=== PATIENT | male | born 1945 | race Caucasian/White ===

== ENCOUNTER → 2018-08-05 | Outpatient (CLI) | payer MEDICARE ==
[~2018-08-05] VITALS: Ht 167.6 cm; Wt 81.6 kg
[~2018-08-05] MED LIST: ADULT LOW DOSE81 MG PO; AMBIEN; AMBIEN 10 MG TA10 MG PO; ASPIRIN EC81 M1 PO; BENTYL 20 MG TA20 M1 PO; CARAFATE 11 GM/10 M1 PO; LANTUS SC; LANTUS SUBQ; MOBIC7.5 MG; NORCO 10-325 T1 EACH PO; NOVOLOG100 UNIT/1 SQ; NOVOLOG100 UNIT/1 SUBQ; PROTONIX40 MG PO; SIMVASTATIN20 MG PO; TIMOPTIC10 ML OPHTHALMIC; XALATAN2.5 ML OPHTHALMIC; ZOCOR 20 MG TAB20 M1 PO; ZOLPIDEM TARTRA10 MG PO
--- NOTE | 2018-08-07 12:07 | PATH ---
[facility] [address] [place] [address] PATHOLOGY RPT PROCEDURE Name: JOHN ALVARADO Room #: REG ALBERTO Goyal.#: [id number] ������������������ Admission: 08/05/18 ������������������ Date of : 43 Discharge: Report #: [id number] Path Case #: [id number] [facility] Accession Number: [id number] . 01 Material submitted: . PART A: BX GASTRITIS PART B: BX POLYP AT ASCENDING COLON . 01 Clinical history: . gastritis, gastric erosion, colon polyp, diverticulosis . 02 Diagnosis: A. Gastric mucosa, gastritis, endoscopic biopsy: - One fragment showing gastric architecture with features of mild reactive gastropathy. - Two fragments showing small bowel-type architecture with intestinal metaplasia as well as mild acute and chronic inflammation. - Negative for atrophy. - Negative for Helicobacter pylori (properly-controlled immunohistochemical stain performed). . B. Polyp, at ascending colon, endoscopic biopsy: - Tubular adenoma. - Negative for high grade dysplasia. . (IUV:mml; 08/06/2018) QLM/08/06/2018 . 02 Electronically signed: . Juli Johnson MD, Pathologist NPI- [id number] . 01 Gross description: . A. The specimen is received in formalin, labeled "John Alvarado, BX gastritis", are three aguirre mucosal tissues measuring 0.1 cm, 0.2 cm and 0.2 cm in greatest dimension, entirely submitted in A1. . B. The specimen is received in formalin, labeled "AlvaradoJohn, BX polyp ascending colon", are two mucosal fragments measuring 0.3 cm in greatest dimension each, entirely submitted in B1. (SWS; 08/05/2018) SHS/ . 02 Pathologist provided ICD-10: K31.9, K29.00, K29.50, D12.2 . 02 CPT . [address] [address] PATHOLOGY RPT PROCEDURE Name: JOHN ALVARADO Room #: REG CLI Clayton#: [id number] ������������������ Admission: 08/05/18 ������������������ Date of : 43 Discharge: Report #: [id number] Path Case #: [id number] Specimen Comment: A courtesy copy of this report has been sent to Specimen Comment: [phone], . Specimen Comment: Report sent to / DR GANDHI Performed at: [address] [facility], [place], [place] [id number] MD Max Lopez MD Phone: [phone] Performed at: [address] [id number] MD Juli Johnson MD Phone: [phone]
--- NOTE | 2018-08-08 14:24 | P ---
[facility] [place] [address] PROCEDURE REPORT Name: LENI TELLEZ [id number] Admission: 08/05/18 ������������������ Attend Phys: Brennen Fan Discharge: ������������������ Date of : 43 Report #: [id number] THIS REPORT FOR: //name// CC: Brennen Gomez DO DATE OF SERVICE: 08/05/2018 PROCEDURE PERFORMED: Upper endoscopy with biopsies. HISTORY OF PRESENT ILLNESS: The patient is a 73-year-old male with intermittent low abdominal pain. He does take Tums on a p.r.n. basis. Denies any dysphagia. His weight has been stable. Last colonoscopy 2007. Last upper endoscopy 2012 with mild gastritis at that time. Biopsies at that time were negative for H. pylori. He denies any diarrhea or constipation. He denies any blood in the stools. Plan is for EGD and colonoscopy today. DESCRIPTION OF PROCEDURE: The risks and benefits of the procedure were explained to the patient, those risks including but not limited to bleeding, perforation, the risk of sedation. He understood these risks and gave informed consent. Sedation was given using propofol per anesthesia. Next, using a standard Olympus upper endoscope, the scope was placed in the patient's mouth and advanced under direct vision through the esophagus, stomach and into the second portion of the duodenum. The larynx was normal in appearance. The esophagus was normal throughout. The GE junction was normal. Overall, the gastric mucosa was normal. In the gastric fundus, there was a mild gastritis in the body and antrum with a few small erosions, no ulcerations, no bleeding. Biopsies were obtained to rule out H. pylori. The pylorus was normal and patent. The duodenal bulb, first and second portion were all normal. The scope was then withdrawn and the procedure terminated. The patient tolerated the procedure well. IMPRESSION: 1. Mild gastritis with few erosions. 2. Otherwise normal upper endoscopy. RECOMMENDATIONS: 1. Await biopsy results. 2. Would recommend a trial of daily PPI therapy. 3. Colonoscopy next today. [address] [address] PROCEDURE REPORT Name: LENI TELLEZ Room #: REG ALBERTO Arnold#: [id number] Admission: 08/05/18 ������������������ Attend Phys: Brennen Fan Discharge: ������������������ Date of : 43 Report #: [id number] Thank you for allowing me to participate in his care. ��������������������������������������������� <ELECTRONICALLY SIGNED> ���������������������������������������� By: Brennen Donis MD ��������������������������������������������� 08/08/18 1424 0910 1347 Brennen Donis MD /nt
--- NOTE | 2018-08-08 14:24 | P ---
[facility] [place] [address] PROCEDURE REPORT Name: LENI TELLEZ [facility] [id number] Admission: 08/05/18 ������������������ Attend Phys: Brennen Fan Discharge: ������������������ Date of : 43 Report #: [id number] THIS REPORT FOR: //name// CC: Brennen Gomez DO DATE OF SERVICE: 08/05/2018 PROCEDURE PERFORMED: Colonoscopy with biopsies. HISTORY OF PRESENT ILLNESS: The patient is a 73-year-old male with approximately 6 months of low intermittent crampy abdominal pain, which has actually improved recently. Last colonoscopy was in 2007 with diverticulosis, but otherwise negative. No family history of colon cancer. He has been taking Bentyl on a p.r.n. basis, which is helpful. He only requires this approximately 1 time per week. He denies any diarrhea or constipation or blood in his stools. His weight has been stable. DESCRIPTION OF PROCEDURE: The risks and benefits of the procedure were explained to the patient, those risks including but not limited to bleeding, perforation and the risk of sedation. He understood these risks and gave informed consent. Sedation was given using propofol per Anesthesia. Next, a digital rectal exam was initially performed, which was normal other than a large prostate. Next, using a standard Olympus colonoscope, the scope was placed in the patient's anus and advanced under direct vision to the cecum. The overall prep was excellent. The cecum and ileocecal valve were normal in appearance. Multiple diverticula were noted in the ascending colon. Also noted was a 4 mm sessile polyp. This was removed with cold forceps. The transverse colon had a few scattered diverticula. Descending colon normal. Multiple diverticula also in the sigmoid colon, no evidence of inflammation. The rectal mucosa was normal. On retroflexion, small nonbleeding internal hemorrhoids were noted. The scope was then withdrawn and the procedure terminated. The patient tolerated the procedure well. IMPRESSION: 1. Diverticulosis. 2. Small colon polyp. 3. Small internal hemorrhoids. 4. Otherwise, normal colonoscopy. RECOMMENDATIONS: 1. Await biopsy results. 2. If polyp is hyperplastic, consider repeat colonoscopy in 10 years; if adenomatous polyp, repeat in 5 years. 3. Etiology of abdominal pain may be secondary to irritable bowel. There is no [address] [address] PROCEDURE REPORT Name: LENI TELLEZ Room #: REG ALBERTO Arnold#: [id number] Admission: 08/05/18 ������������������ Attend Phys: Brennen Fan Discharge: ������������������ Date of : 43 Report #: [id number] evidence of colitis or diverticulitis on exam today. Letitia has been helpful, would continue this regimen. If symptoms become worse, consider the possibility of a CT scan of the abdomen and pelvis. Thank you for allowing me to participate in his care. ��������������������������������������������� <ELECTRONICALLY SIGNED> ���������������������������������������� By: Brennen Donis MD ��������������������������������������������� 08/08/18 1424 0913 1449 Brennen Donis MD /oscar
== END | disposition home or self-care (01) ==
LOC: GI 06:04
DX: D12.2 Benign neoplasm of ascending colon (principal); K57.30 Diverticulosis of large intestine without perforation or abscess without bleeding; K31.9 Disease of stomach and duodenum, unspecified; K29.00 Acute gastritis without bleeding; K29.50 Unspecified chronic gastritis without bleeding; K64.8 Other hemorrhoids; E78.5 Hyperlipidemia, unspecified; K21.9 Gastro-esophageal reflux disease without esophagitis; E11.9 Type 2 diabetes mellitus without complications; Z79.4 Long term (current) use of insulin; Z87.442 Personal history of urinary calculi; Z98.890 Other specified postprocedural states; Z96.651 Presence of right artificial knee joint; Z98.41 Cataract extraction status, right eye; Z98.42 Cataract extraction status, left eye
CPT/HCPCS: 62110; 62900